=== PATIENT | male | born 1960 | race Two or more races ===

== ENCOUNTER → 2016-09-02 | Outpatient (REF) | payer MEDICARE ==
[2016-09-02 13:01] LABS: ALBUMIN/GLOBULIN RATIO 1.18 (1.00-1.93); ALKALINE PHOSPHATASE 53 U/L (45-117); ALT/SGPT 28 U/L (12-78); ANION GAP 9 MEQ/L (8-16); AST/SGOT 20 U/L (15-37); BILIRUBIN,TOTAL 0.5 MG/DL (0.2-1.0); BLOOD UREA NITROGEN 10 MG/DL (7-18); CALCIUM LEVEL 9.2 MG/DL (8.5-10.1); CARBON DIOXIDE LEVEL 27 MEQ/L (21-32); CHLORIDE LEVEL 104 MEQ/L (98-107); CHOLESTEROL LEVEL 204 MG/DL (<200); CREATININE FOR GFR 0.92 MG/DL (0.70-1.30); GLOMERULAR FILTRATION RATE > 60.0 (>56); GLUCOSE, FASTING 139 MG/DL (70-105); POTASSIUM SERUM 4.4 MEQ/L (3.5-5.1); SODIUM LEVEL 140 MEQ/L (136-145); TOTAL PROTEIN 7.4 GM/DL (6.4-8.2); TRIGLYCERIDES LEVEL 205 MG/DL (<150)
== END ==
LOC: M SFHCPLAZ 08:58
PROVIDERS: ATTEND Physician Assistant
DX: E11.9 Type 2 diabetes mellitus without complications (principal); E78.4 Other hyperlipidemia

== ENCOUNTER → 2018-10-27 | Outpatient (CLI) | payer MEDICARE ==
--- NOTE | 2018-10-27 10:16 | REP ---
Cervical spine series: Seven views. History: Pain radiating down the shoulder. Neck injury. Findings: Lateral views done in flexion/extension and neutral position show straightening and limited range of flexion extension motion. No subluxation or instability is seen. Vertebral body heights are preserved. There is fairly advanced degenerative disc disease at C4-5, C5-6 and C6-7 with disc space narrowing and anterior osteophyte formation at each of these levels. Oblique images demonstrate normally aligned facets and intact neural foramina bilaterally at each level. There is osteoarthritic hypertrophy at the costal vertebral junction on the right posteriorly at T1. AP and open mouth odontoid views are otherwise unremarkable. Impression: Degenerative spondylosis changes. Straightening and limited range of motion. No acute abnormality. Electronically Signed by Jeff Alejo MD 10/27/2018 10:39 A
--- NOTE | 2018-10-27 10:17 | REP ---
LEFT RIB SERIES: Seven views including PA chest. HISTORY: Pain. Injury in July. FINDINGS: PA chest radiograph shows no evidence of infiltrate. No pneumothorax or hydrothorax is seen. Mediastinum is not widened. Heart size is normal. There is hypertrophy and spurring at the costovertebral junction of the right 1st rib at T1. Multiple left rib views show no visible rib fracture or bony destructive lesion. IMPRESSION: No active disease. Negative left rib radiographs. Electronically Signed by Jeff Alejo MD 10/27/2018 10:39 A
[2018-10-27 13:18] LABS: HEMATOCRIT 44.9 % (42.0-52.0); HEMOGLOBIN 14.9 g/dl (13.5-17.5); MEAN CORPUSCULAR HEMOGLOBIN 31.7 pg (27.0-33.0); MEAN CORPUSCULAR HGB CONC 33.2 g/dl (32.0-36.5); MEAN CORPUSCULAR VOLUME 95.5 fl (80.0-96.0); PLATELET COUNT, AUTOMATED 271 10^3/uL (150-450); WHITE BLOOD COUNT 8.2 10^3/uL (4.0-10.0)
[2018-10-27 13:43] LABS: HEMOGLOBIN A1c 6.6 %
[2018-10-27 13:45] LABS: MAU/CREAT RATIO 176.9 MCG/MG (0.0-30.0)
[2018-10-27 14:20] LABS: ALBUMIN 4.2 GM/DL (3.2-5.2); ALT/SGPT 37 U/L (12-78); BILIRUBIN,TOTAL 0.5 MG/DL (0.2-1.0); BLOOD UREA NITROGEN 7 MG/DL (7-18); CARBON DIOXIDE LEVEL 27 MEQ/L (21-32); CHLORIDE LEVEL 105 MEQ/L (98-107); CHOLESTEROL LEVEL 213 MG/DL (<200); CHOLESTEROL RISK RATIO 5.605 (<5); CREATININE FOR GFR 0.87 MG/DL (0.70-1.30); FREE T4 0.79 NG/DL (0.76-1.46); GLOMERULAR FILTRATION RATE > 60.0 (>56); GLUCOSE, FASTING 147 MG/DL (70-100); HDL CHOLESTEROL 38 MG/DL (>40); LDL CHOLESTEROL 122 MG/DL (<100); NON-HDL-C 175 MG/DL; POTASSIUM SERUM 4.6 MEQ/L (3.5-5.1); SODIUM LEVEL 138 MEQ/L (136-145); TOTAL 25(OH) VITAMIN D 8.9 NG/ML (30.0-100.0); TOTAL PROTEIN 7.4 GM/DL (6.4-8.2); TRIGLYCERIDES LEVEL 263 MG/DL (<150)
== END ==
LOC: M WUC 09:09
PROVIDERS: ATTEND Physician Assistant
DX: E78.49 Other hyperlipidemia (principal); E11.9 Type 2 diabetes mellitus without complications; Z12.5 Encounter for screening for malignant neoplasm of prostate; E55.9 Vitamin D deficiency, unspecified; M54.2 Cervicalgia; R07.81 Pleurodynia; M47.892 Other spondylosis, cervical region
CPT/HCPCS: 36415; 71101; 72052; 80053; 80061; 82043; 82306; 83036; 84439; 84443; 85027; G0103

== ENCOUNTER → 2019-02-07 | Outpatient (REF) | payer MEDICARE ==
[2019-02-07 12:39] LABS: FREE T4 0.84 NG/DL (0.76-1.46); THYROID STIMULATING HORMONE 3.88 uIU/ML (0.358-3.740)
[2019-02-07 12:41] LABS: TOTAL 25(OH) VITAMIN D 51.5 NG/ML (30.0-100.0)
[2019-02-07 12:45] LABS: HEMOGLOBIN A1c 6.8 %
[2019-02-07 13:21] LABS: MAU/CREAT RATIO 115.1 MCG/MG (0.0-30.0)
== END ==
LOC: M SFHCPLAZ 09:05
PROVIDERS: ATTEND Family Medicine
DX: Z12.5 Encounter for screening for malignant neoplasm of prostate (principal); E78.49 Other hyperlipidemia; E11.9 Type 2 diabetes mellitus without complications; E55.9 Vitamin D deficiency, unspecified
CPT/HCPCS: 36415; 82043; 82306; 83036; 84439; 84443; G0103

== ENCOUNTER → 2019-02-21 | Outpatient (CLI) | payer MEDICARE ==
--- NOTE | 2019-02-21 13:30 | REP ---
Clinical: Lung screening. History smoking. Comparison: None Technique: Axial low-dose noncontrast images from the thoracic inlet to the upper abdomen using lung screening technique. Findings: The lung mullins are well-aerated and demonstrate very mild chronic-appearing interstitial changes with mild bronchiectasis. Very subtle small patchy ground-glass changes at the left base are nonspecific. No consolidation, significant nodule or mass lesion is appreciated. No pleural effusion/reaction or pneumothorax. Mediastinum demonstrates atherosclerotic changes of the aorta and coronary arteries without cardiomegaly. Impression: Lung-RADS category II. Very subtle possible ground-glass type changes at the left base. No nodule or suspicious abnormality. Management recommendations include annual low-dose CT evaluation. Electronically Signed by Abhay Marsh MD 02/21/2019 01:22 P
== END ==
LOC: M RAD 10:42
PROVIDERS: ATTEND Family Medicine
DX: F17.211 Nicotine dependence, cigarettes, in remission (principal); R91.8 Other nonspecific abnormal finding of lung field

== ENCOUNTER → 2019-05-09 | Outpatient (REF) | payer MEDICARE ==
[2019-05-09 12:06] LABS: HEMOGLOBIN A1c 6.5 %
[2019-05-09 12:19] LABS: CHOLESTEROL RISK RATIO 3.133 (<5)
== END ==
LOC: M SFHCPLAZ 08:40
PROVIDERS: ATTEND Family Medicine
DX: E11.9 Type 2 diabetes mellitus without complications (principal); E78.2 Mixed hyperlipidemia; R97.20 Elevated prostate specific antigen [PSA]; Z12.5 Encounter for screening for malignant neoplasm of prostate
CPT/HCPCS: 36415; 80061; 83036; G0103

== ENCOUNTER 2019-10-03 13:37 | Emergency (ER) | payer MEDICARE ==
[~2019-10-03] VITALS: Ht 172.7 cm; Wt 94.1 kg
[2019-10-03 14:13] LABS: BASO % 0.5 % (0.0-1.0); EOS # 0.5 10^3/uL (0.0-0.5); EOS % 6.4 % (0.0-3.0); HEMOGLOBIN 14.7 g/dl (13.5-17.5); LYMPH % 40.9 % (24.0-44.0); MEAN CORPUSCULAR HEMOGLOBIN 31.6 pg (27.0-33.0); MEAN CORPUSCULAR HGB CONC 32.7 g/dl (32.0-36.5); MEAN CORPUSCULAR VOLUME 96.8 fl (80.0-96.0); MONO # 0.4 10^3/uL (0.0-0.8); NEUTROPHILS # 3.4 10^3/uL (1.5-8.5); NEUTROPHILS % 45.9 % (36.0-66.0); PLATELET COUNT, AUTOMATED 229 10^3/uL (150-450); RED BLOOD COUNT 4.65 10^6/uL (4.30-6.10); WHITE BLOOD COUNT 7.4 10^3/uL (4.0-10.0)
[2019-10-03 14:36] LABS: ALBUMIN 4.1 GM/DL (3.2-5.2); ALT/SGPT 29 U/L (12-78); BILIRUBIN,DIRECT 0.1 MG/DL (0.0-0.2); BILIRUBIN,TOTAL 0.4 MG/DL (0.2-1.0); BLOOD UREA NITROGEN 9 MG/DL (7-18); CALCIUM LEVEL 9.2 MG/DL (8.5-10.1); CARBON DIOXIDE LEVEL 28 MEQ/L (21-32); CHLORIDE LEVEL 105 MEQ/L (98-107); CREATININE FOR GFR 1.02 MG/DL (0.70-1.30); GLOMERULAR FILTRATION RATE > 60.0 (>56); GLUCOSE, FASTING 138 MG/DL (70-100); LIPASE 414 U/L (73-393); POTASSIUM SERUM 4.4 MEQ/L (3.5-5.1); SODIUM LEVEL 139 MEQ/L (136-145); TOTAL PROTEIN 7.5 GM/DL (6.4-8.2)
[2019-10-03] MEDS ORDERED: KETOROLAC 30 MG/ML VIAL (J1885) IV ONE (18:30)
[2019-10-03] MEDS ORDERED: ISOVUE-370 76% 100ML VIAL (Q9967) As Ordered ONE (18:35)
[2019-10-03 18:50] LABS: HEMOGLOBIN A1c 6.9 %
--- NOTE | 2019-10-03 19:14 | REPVR ---
PROCEDURE INFORMATION: Exam: CT Abdomen And Pelvis With Contrast Exam date and time: 10/03/2019 6:41 PM Age: 58 years old Clinical indication: Abdominal pain; Localized; Left; Additional info: Left abd pain TECHNIQUE: Imaging protocol: Computed tomography of the abdomen and pelvis with intravenous contrast. Radiation optimization: All CT scans at this facility use at least one of these dose optimization techniques: automated exposure control; mA and/or kV adjustment per patient size (includes targeted exams where dose is matched to clinical indication); or iterative reconstruction. Contrast material: ISOVUE 370; Contrast volume: 100 ml; Contrast route: IV; COMPARISON: CR Hip,AP,LAT to include Pelvis LEFT 10/03/2019 6:22 PM FINDINGS: Lungs: Patchy ground-glass opacities left lower lobe likely are atelectatic although clinical correlation to exclude infection suggested. Liver: There is a diffuse decrease in hepatic parenchymal density, consistent with steatosis. Gallbladder and bile ducts: Normal. No calcified stones. No ductal dilation. Pancreas: Normal. No ductal dilation. Spleen: Normal. No splenomegaly. Adrenals: Normal. No mass. Kidneys and ureters: Normal. No hydronephrosis. Stomach and bowel: Unremarkable. No obstruction. No mucosal thickening. Appendix: No evidence of appendicitis. Intraperitoneal space: Unremarkable. No free air. No significant fluid collection. Vasculature: The aorta demonstrates moderate atherosclerotic calcification. Lymph nodes: Unremarkable. No enlarged lymph nodes. Bladder: There is diffuse thickening of the wall of the bladder without significant perivesicular inflammatory changes. Findings may be related to chronic bladder outlet obstruction however clinical correlation to exclude cystitis suggested. Reproductive: The prostate gland demonstrates mild hyperplasia. Bones/joints: [id number] central spinal stenosis at L2-L3. Sclerotic changes in the L2 and L3 vertebral bodies likely degenerative. Soft tissues: Unremarkable. IMPRESSION: 1. Patchy ground-glass opacities left lower lobe likely are atelectatic although clinical correlation to exclude infection suggested. 2. There is a diffuse decrease in hepatic parenchymal density, consistent with steatosis. 3. There is diffuse thickening of the wall of the bladder without significant perivesicular inflammatory changes. Findings may be related to chronic bladder outlet obstruction however clinical correlation to exclude cystitis suggested. 4. Mild prostatic hyperplasia. Electronically signed by: Aleksander Fischer On 10/03/2019 19:14:14 PM
[2019-10-03] MEDS ORDERED: ONDANSETRON 4 MG ORAL DISINTEGRATING TAB (Q0162 PER 1MG) PO ONE (20:45)
[2019-10-03] MEDS ORDERED: KETO10TAB PO (20:48)
[2019-10-03 21:04] VITALS: BP 170/88
--- NOTE | 2019-10-04 07:26 | REP ---
PELVIS AND LEFT HIP: AP view of the pelvis and AP and frog-leg views of the left hip are performed. There appear to be old healed left pubic fractures. There is mild narrowing and sclerosis of the pubic symphysis with slight inferior displacement of the left pubis with respect to the right pubis. There is mild joint space narrowing and subchondral sclerosis at both hip joints. There is narrowing and sclerosis at the sacroiliac joints. Mild tendinous calcifications are seen along the lesser trochanters. IMPRESSION: Old left pubic fractures. No definite acute fracture seen. Mild degenerative changes. Electronically Signed by Jose Angel Dash MD 10/04/2019 01:03 P
--- NOTE | 2019-10-04 18:58 | ED PDOC ---
Post-Departure Follow-Up dr richter faxedf formal report of ct abd/p for fu Timothy Soto MD Oct 04, 2019 18:58
--- NOTE | 2019-10-05 04:41 | ECGEPIP ---
[facility] - ED Test Date: 2019-10-03 Pat Name: TING SANDERSON Department: Room: - Gender: Male Assistant Loan Processor: giorgio : 1960 Requested By: BLAKE RUSSELL PA-C Order Number: [id number] Reading MD: Shola Lay Measurements Intervals [place] Rate: 65 P: -15 AL: 160 QRS: 8 QRSD: 110 T: 30 QT: 421 QTc: 441 Interpretive Statements SINUS RHYTHM Comparison tracing not on file Electronically Signed on 10-05-2019 4:40:52 EST by Shola Lay
== END 2019-10-03 21:22 | disposition home or self-care (01) ==
LOC: M ED 13:37
DX: M48.00 Spinal stenosis, site unspecified (principal); N32.89 Other specified disorders of bladder; E11.9 Type 2 diabetes mellitus without complications; Z87.891 Personal history of nicotine dependence; F12.10 Cannabis abuse, uncomplicated; Z87.81 Personal history of (healed) traumatic fracture
CPT/HCPCS: 73502; 74177; 80048; 80076; 81001; 83036; 83690; 85025; 93005; 96374; 99284; J1885; Q9967